=== PATIENT | male | born 1960 | race African-American/Black ===

== ENCOUNTER 2016-09-22 18:00 | Emergency (ER) | payer BC ==
[~2016-09-22] VITALS: Ht 185.4 cm; Wt 98.4 kg
[~2016-09-22 18:00] MED LIST: ATOR20TA PO; CIPR500T94 PO; GABA-586 PO; GABA250S6 PO; INSU100V13 SQ; LISI-334 PO; METF500T4 PO; ONDA4TAB10 PO; PANT20TA58 PO; ROSI4TAB3 PO
[2016-09-22] MEDS ORDERED: SULF1TAB24 PO (20:13)
--- NOTE | 2016-09-22 20:13 | PHYS DOC ---
Past History Past Medical History: Diabetes, Hypertension, Other Past Surgical History: Other Smoking: Non-smoker Alcohol Use: None Drug Use: None Adult General Chief Complaint Chief Complaint: LOWER EXTREMITY SWELLING HPI HPI Patient is a 56-year-old male who comes to the ED with a complaint of left leg swelling and warmth for about 2 days. His legs are always a bit swollen but it' s been worse for the past 2 days especially on the left. He denies injury. He has felt hot but he denies fever or chills. He has no history of blood clot. No history of cellulitis. He does have a history of diabetes and hypertension, he has run out of his medications and has not been taking them. Review of Systems Review of Systems Constitutional: Denies fever or chills [] Eyes: Denies change in visual acuity, redness, or eye pain [] HENT: Denies nasal congestion or sore throat [] Respiratory: Denies cough or shortness of breath [] Cardiovascular: Denies chest pain GI: Denies abdominal pain, nausea, vomiting, bloody stools or diarrhea [] Musculoskeletal: Denies back pain or joint pain [] Integument: As in history of present illness Neurologic: Denies headache, focal weakness or sensory changes [] Endocrine: He has not been taking his diabetes medication Allergies Allergies Allergies Coded Allergies Type Severity Reaction Last Updated Verified No Known Drug Allergies 09/02/13 No Physical Exam Physical Exam Constitutional: Well developed, well nourished, no acute distress, non-toxic appearance. Alert, mentating normally. HENT: Normocephalic, atraumatic, bilateral external ears normal, nose normal. [ ] Eyes: conjunctiva normal, no discharge. [] Neck: Normal range of motion, no stridor. [] Skin: Warm, dry, no erythema, no rash. [] Extremities: Left leg below the knee has mild warmth, mild redness, mild swelling. The calf is mildly indurated in texture. Distal neurovascular intact. There is no obvious open wound or entry point for cellulitis on the left leg. The skin of the feet and toenails are generally poorly cared for. The right leg below the knee has 3 superficial appearing scabbed areas that do not appear infected, the patient states are from socks rubbing on his leg. Neurologic: Alert and oriented X 3, normal motor function, normal sensory function, no focal deficits noted. [] Current Patient Data Vital Signs Vital Signs Date Time Temp Pulse Resp B/P (MAP) Pulse Ox O2 Delivery O2 Flow Rate FiO2 09/22/16 18:20 99.1 80 98 Room Air EKG EKG [] Radiology/Procedures Radiology/Procedures Venous Doppler of the left leg read by the radiologist. No deep vein thrombosis. [] Course & Med Decision Making Course & Med Decision Making Pertinent Labs and Imaging studies reviewed. (See chart for details) 56-year-old male presents with left leg swelling, redness, warmth, and mild pain. Doppler study negative for DVT. We will treat him for cellulitis. See instructions for plan. I also emphasized the need to get back in to see his primary care provider about treatment of his hypertension and diabetes. [] Dragon Disclaimer Dragon Disclaimer This chart was dictated in whole or in part using Voice Recognition software in a busy, high-work load, and often noisy Emergency Department environment. It may contain unintended and wholly unrecognized errors or omissions. Departure Departure: Impression: Primary Impression: Left leg cellulitis Disposition: HOME, SELF-CARE Condition: STABLE Referrals: ANDREW ALARCON MD (PCP) Patient Instructions: Cellulitis, [id number] Additional Instructions: We will treat you for infection of the skin of your leg. Skin infection is called cellulitis. It's very important to stay off of your leg as much as possible and keep it elevated to help with the swelling, until it is getting better, for at least 3- 4 days. If you are getting worse, if you run a fever 101 or higher, if you have chills, vomiting, or feels sick all over, return to emergency, you may need to be admitted for IV antibiotics. See your doctor for recheck in 5-7 days. Scripts Sulfamethoxazole/Trimethoprim (BACTRIM DS TABLET) 1 Each Tablet 1 TAB PO BID for leg cellulitis, #20 TAB Prov: ARLINE SHAW MD 09/22/16 ARLINE SHAW MD Sep 22, 2016 20:13
--- NOTE | 2016-09-22 20:14 | RAD ---
Left lower extremity venous Doppler dated 09/22/2016. No comparison available. Clinical indication: Left leg swelling. FINDINGS: Grayscale, color-flow and spectral waveform analysis performed. Normal compressibility, phasicity and augmentation of flow throughout. No filling defects are seen. There is a enlarged lymph node at the left groin that measures up to 1.5 cm short axis with thickened cortex. IMPRESSION: 1. No evidence of left lower extremity deep vein thrombosis. 2. Enlarged left groin lymph node, nonspecific. Consider infectious, inflammatory or neoplastic etiology. Electronically signed by: Hernando Geronimo MD (09/22/2016 8:11 PM)
[2016-09-22 20:16] VITALS: BP 195/83
[2016-09-22] MEDS ORDERED: SMZ/TMP 800/160MG TABLET. PO ONE (20:30)
== END 2016-09-22 20:28 | disposition home or self-care (01) ==
LOC: ER 18:00
DX: L03.116 Cellulitis of left lower limb (principal); I10 Essential (primary) hypertension; E11.9 Type 2 diabetes mellitus without complications
CPT/HCPCS: 93971; 99284-25

== ENCOUNTER 2016-10-27 05:53 | Emergency (ER) | payer BC ==
[~2016-10-27 05:53] MED LIST changes: +SULF1TAB24 PO
[2016-10-27 06:50] LABS: BASO # 0.1 x10^3/uL (0.0-0.2); BASO % 1 % (0-3); EOS # 0.2 x10^3/uL (0.0-0.7); EOS % 3 % (0-3); HEMATOCRIT 31.4 % (39.0-53.0); HEMOGLOBIN 10.4 g/dL (13.0-17.5); LYMPH # 1.3 x10^3/uL (1.0-4.8); LYMPH % 21 % (24-48); MEAN CORPUSCULAR HEMOGLOBIN 27 pg (25-35); MEAN CORPUSCULAR HGB CONC 33 g/dL (31-37); MEAN CORPUSCULAR VOLUME 81 fL (79-100); MONO # 0.9 x10^3/uL (0.0-1.1); MONO % 14 % (0-9); NEUT % 62 % (31-73); PLATELET COUNT 352 x10^3/uL (140-400); RED CELL DISTRIBUTION WIDTH 13.4 % (11.5-14.5); WHITE BLOOD COUNT 6.5 x10^3/uL (4.0-11.0)
[2016-10-27 07:10] LABS: ALBUMIN 3.3 g/dL (3.4-5.0); ALBUMIN/GLOBULIN RATIO 0.8 (1.0-1.7); CALCIUM 8.7 mg/dL (8.5-10.1); GFR 26.3; TOTAL BILIRUBIN 0.4 mg/dL (0.2-1.0); TOTAL PROTEIN 7.2 g/dL (6.4-8.2)
[2016-10-27 07:28] LABS: BARBITURATES NEG (NEG); BENZODIAZEPINES NEG (NEG); CANNABINOIDS NEG (NEG); COCAINE NEG (NEG); METHADONE NEG (NEG); OPIATES NEG (NEG); PHENCYCLIDINE NEG (NEG)
[2016-10-27 07:30] LABS: AMPHETAMINE/METHAMPHETAMINE NEG (NEG)
[2016-10-27 07:37] VITALS: BP 126/59
--- NOTE | 2016-10-27 07:37 | RAD ---
Portable chest, 10/27/2016: History: Cough Comparison is made to a study from 09/02/2013. The heart size and pulmonary vascularity are normal. There is mild streaky atelectasis/infiltrate in the left base. The right lung is clear. There is no evidence of pleural fluid. IMPRESSION: Mild left basilar atelectasis and/or pneumonitis.
[2016-10-27 07:40] LABS: BILIRUBIN,URINE NEG (NEG); CLARITY,URINE CLOUDY; COLOR,URINE YELLOW; GLUCOSE,URINE NEG (NEG); NITRITE,URINE NEG (NEG); UROBILINOGEN,URINE 0.2 mg/dL (0.2 mg/dL)
[2016-10-27 07:41] LABS: AMORPHOUS SEDIMENT,UR PRESENT /HPF; BACTERIA,URINE FEW /HPF (0-FEW); HYALINE CASTS, URINE OCC /HPF; SQUAMOUS EPITHELIAL CELL,UR FEW /LPF
--- NOTE | 2016-10-27 07:53 | PHYS DOC ---
General Chief Complaint: General Complaint Stated Complaint: METALLIC TASTE SWETTING Time Seen by MD: 05:59 Source: patient Exam Limitations: no limitations Problems: History of Present Illness Initial Comments Patient is a 56-year-old male brought to the ED with sweating and a metallic taste. Patient states that he was recently diagnosed with stage III chronic kidney disease. He spent time as an inpatient recently at both and [place] for hypertension and renal insufficiency. He went to bed feeling well last night but says this morning when he awoke he was sweating. He noticed a metallic taste and his significant other wanted to bring him for evaluation. He is taking some new antihypertensive meds (uncertain name) and does report occasional GERD symptoms. He denies fever chills headache neck stiffness rash chest pain and difficulty breathing nausea vomiting or diarrhea. Timing/Duration: 1 hour Severity: mild Modifying Factors: improves with other Associated Symptoms: diaphoresis, other Allergies: Coded Allergies: No Known Drug Allergies (Unverified , 09/02/13) Past Medical History Medical History: other (diabetes, hypertension, stage III chronic kidney disease, anemia, gastroparesis) Surgical History: noncontributory (herniorrhaphy) Social History Smoker: non-smoker Alcohol: none Drugs: none Review of Systems Constitutional: see HPI, denies chills, denies fever, denies malaise, denies weakness Respiratory: denies cough, denies orthopnea, denies shortness of breath, denies wheezing Cardiovascular: denies chest pain, denies edema, denies palpitations, denies syncope Gastrointestinal: denies abdominal pain, denies constipation, denies diarrhea, denies nausea, denies vomiting Genitourinary: denies dysuria, denies frequency Musculoskeletal: denies back pain, denies joint swelling, denies neck pain Psychiatric/Neurological: denies headache, denies numbness, denies paresthesia , denies weakness Hematologic/Lymphatic: denies blood clots, denies easy bleeding, denies easy bruising Physical Exam General Appearance: WD/WN, no apparent distress Eyes: bilateral eye normal inspection, bilateral eye PERRL, bilateral eye EOMI Ear, Nose, Throat: hearing grossly normal, normal ENT inspection, normal pharynx Neck: non-tender, supple Respiratory: normal breath sounds, no respiratory distress Cardiovascular: normal peripheral pulses, regular rate, rhythm Gastrointestinal: normal bowel sounds, non tender, soft Back: no CVA tenderness, no vertebral tenderness Extremities: non-tender, normal inspection Neurologic/Psychiatric: ocular care technologist II-XII nml as tested, no motor/sensory deficits, alert, normal mood/affect, oriented x 3 Skin: normal color, warm/dry Orders, Labs, Meds EKG: sinus tachycardia 104 bpm, LVH, no STEMI. Interpreted by Dr Perales ChestAP: no acute cardiopulmonary process, interpreted by Dr Perales. BUN 36, creatinine 3 otherwise labs reassuring I discussed findings with the patient and manager registration at length. No specific cause for his symptoms noted in the department today. I discussed observation admission for further evaluation, patient states he has an appointment with Cynthia Gomes later today. He would like to follow-up with her and at that point determine whether he should be hospitalized or simply follow-up with nephrology as an outpatient. I advised him he could return at any time see departure for instructions. Departure Time of Disposition: 07:51 Disposition: 01 HOME, SELF-CARE Diagnosis: CKD Condition: STABLE Patient Instructions: Chronic Renal Insufficiency Additional Instructions: As discussed, you have chosen to follow up with Dr Ramirez today as scheduled in lieu of hospitalization. Rest, no strenuous activity. Continue current treatment. Take copies of labs to your doctor appointment later today. Follow up with Dr Ramirez today at 2pm as scheduled. Return to ED with new or changing symptoms. PEDRO PERALES DO Oct 27, 2016 07:53
--- NOTE | 2016-11-02 14:56 | EKG ---
[address] [address] Test Date: 2016-10-27 Test Time: 06:50:17 Pat Name: IAM LOMXA Department: Room: Gender: M Health And Safety Coordinator: : 1960 Requested By: PEDRO JOHNSON Order Number: [id number] Reading MD: Tom Gonzalez Measurements Intervals [place] Rate: 104 P: 0 DC: 164 QRS: -19 QRSD: 88 T: 99 QT: 342 QTc: 456 Interpretive Statements SINUS TACHYCARDIA ATRIAL PREMATURE COMPLEX(ES) LEFT ATRIAL ABNORMALITY QRS(T) CONTOUR ABNORMALITY CONSIDER INFERIOR MYOCARDIAL DAMAGE Electronically Signed On 11-02-2016 14:56:44 CDT by Tom Gonzalez
== END 2016-10-27 07:57 | disposition home or self-care (01) ==
LOC: ER 05:53
DX: N18.3 Chronic kidney disease, stage 3 (moderate) (principal); I12.9 Hypertensive chronic kidney disease with stage 1 through stage 4 chronic kidney disease, or unspecified chronic kidney disease; E11.22 Type 2 diabetes mellitus with diabetic chronic kidney disease
CPT/HCPCS: 36415; 51702; 71010; 80053; 80307; 81001; 82550; 83690; 83880; 84484; 85027; 93005; G0481; 99285-25; G0479